=== PATIENT | male | born 1990 | race Caucasian/White ===

== ENCOUNTER 2016-09-18 | Emergency (ER) | payer MEDICAID | END 2016-09-18 13:41 | disposition left against medical advice (07) | DX: Z53.21 Procedure and treatment not carried out due to patient leaving prior to being seen by health care provider (principal) ==

== ENCOUNTER 2017-02-14 21:40 | Emergency (ER) | payer MEDICAID ==
[2017-02-14 21:46] VITALS: BP 165/93
[2017-02-14] MEDS ORDERED: traMADol 50 MG TABLET PO STA (21:48)
[2017-02-14] MEDS ORDERED: CLINDAMYCIN 150 MG CAPSULE PO STA (21:48)
--- NOTE | 2017-02-14 21:48 | ED Physician Documentation ---
PD HPI HEENT FB - Chief complaint Chief Complaint: Heent - History obtained from History obtained from: Patient - History of Present Illness Timing - onset: Other (He was eating tonight and a lesion on the roof of his mouth popped open. He's been having ongoing dental pain there.) Review of Systems Constitutional: denies: Fever, Chills Nose: denies: Rhinorrhea / runny nose, Congestion Throat: reports: Dental pain / toothache. denies: Sore throat PD PAST MEDICAL HISTORY - Past Medical History Past Medical History: No - Past Surgical History Past Surgical History: No - Present Medications Home Medications: Ambulatory Orders Medication Instructions Recorded Confirmed Albuterol Sulfate [Albuterol 2 puffs IH Q4HR PRN #1 [id number].[email or web address] 03/29/15 Sulfate Hfa] Clindamycin [Cleocin] 300 mg PO Q6H 10 Days 02/14/17 traMADol [Ultram] 50 mg PO Q4-6H PRN #15 tablet 02/14/17 - Allergies Allergies/Adverse Reactions: Allergies Allergy/AdvReac Type Severity Reaction Status Date / Time No Known Drug Allergies Allergy Verified 03/29/15 09:27 - Social History Does the pt smoke?: Yes Smoking Status: Heavy tobacco smoker Does the pt drink ETOH?: Yes Does the pt have substance abuse?: No - Immunizations Immunizations are current?: No - POLST Patient has POLST: No PD ED PE NORMAL - Vitals Vital signs reviewed: Yes - General General: Alert and oriented X 3, No acute distress - HEENT HEENT: PERRL, EOMI, Other (He has a dental abscess behind #8 which spontaneously opened.) - Neck Neck: Supple, no meningeal sign, No bony TTP - Neuro Neuro: Alert and oriented X 3, Normal speech - Psych Psych: Normal mood, Normal affect Results - Vitals Vitals: Vital Signs - 24 hr 02/14/17 21:44 Temperature 36.7 C Heart Rate 105 H Respiratory 18 Rate Blood Pressure 165/93 H O2 Saturation 96 Oxygen O2 Source Room air Departure - Departure Disposition: 01 Home, Self Care Clinical Impression: Dental abscess Condition: Good Record reviewed to determine appropriate education?: Yes Instructions: ED Abscess Dental Prescriptions: Clindamycin [Cleocin] 300 mg PO Q6H 10 Days traMADol [Ultram] 50 mg PO Q4-6H PRN #15 tablet PRN Reason: Pain Comments: It is very important that you follow up with a dentist. When it comes to dental problems like yours the emergency department can only offer you a short-term solution to your long-term problem. A couple of options for low-cost dental care include: [facility] in [place] call [phone] for an appointment Or [facility] in [place], call [phone] for an appointment Do not drink or drive while on narcotic pain medicine. Note that many narcotic pain relievers also contain tylenol/acetaminophen. Please ensure that your total dose of acetaminophen from all sources does not exceed 3 grams (3000mg) per day. You may constipated on this medication, take a stool softener such as "Colace" twice a day while you are on it. Also recommend a winu-hxj-cctrhrj laxative such as senna or MiraLAX any day that you do not have a bowel movement. If you received narcotic pain medication in the emergency department, do not drive or operate machinery for the next 24 hours. Your blood pressure was elevated today on check in to the emergency department. This does not mean that you have hypertension, it is a common phenomenon to check into the emergency department and have elevated blood pressure. I recommend that you see your primary care physician within the week to have it rechecked when you're feeling better. Discharge Date/Time: 02/14/17 22:01
[2017-02-14] MEDS ORDERED: traMADol 50 MG TABLET PO ONE (21:49)
[2017-02-14] MEDS ORDERED: CLINDAMYCIN 150 MG CAPSULE PO ONE (21:50)
== END 2017-02-14 22:01 | disposition home or self-care (01) ==
LOC: ED 21:40
DX: K04.7 Periapical abscess without sinus (principal); R03.0 Elevated blood-pressure reading, without diagnosis of hypertension; F17.200 Nicotine dependence, unspecified, uncomplicated
CPT/HCPCS: 99283; A9270

== ENCOUNTER 2017-06-02 23:53 | Emergency (ER) | payer MEDICAID ==
[2017-06-03 00:35] VITALS: BP 142/91
[2017-06-03] MEDS ORDERED: ACETAMINOPHEN 500 MG TABLET PO STA (00:42)
--- NOTE | 2017-06-03 00:46 | CT Preliminary Report ---
Exam: CT Head W/O IMPRESSION: Normal head CT. [facility] SITE ID: [id number]
[2017-06-03] MEDS ORDERED: ACETAMINOPHEN 500 MG TABLET PO ONE (00:49)
--- NOTE | 2017-06-03 00:54 | CT Preliminary Report ---
Exam: CT Facial Bones W/O IMPRESSION: 1. No evidence of maxillofacial fracture. 2. Carious and periodontal disease [facility] SITE ID: [id number]
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
[2017-06-03] MEDS: IBUPROFEN 600 MG TABLET PO STA (00:58)
[2017-06-03] MEDS ORDERED: IBUPROFEN 600 MG TABLET PO ONE (01:01)
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
== END 2017-06-03 01:17 | disposition home or self-care (01) ==
LOC: ED 23:53
DX: R51 Headache (principal); V40.5XXA Car driver injured in collision with pedestrian or animal in traffic accident, initial encounter; Y92.488 Other paved roadways as the place of occurrence of the external cause; K04.7 Periapical abscess without sinus; F17.200 Nicotine dependence, unspecified, uncomplicated
CPT/HCPCS: 70450; 70486; 99283; A9270

== ENCOUNTER 2018-08-10 01:34 | Outpatient (CLI) | payer MEDICAID | END 2018-08-10 01:35 | disposition EMS.NT | LOC: EMS 01:34 | PROVIDERS: ATTEND Surgery | DX: R51 Headache (principal); R11.10 Vomiting, unspecified ==

== ENCOUNTER 2020-08-31 09:40 | Outpatient (CLI) | payer MEDICAID ==
--- NOTE | 2020-08-31 10:57 | XRAY Report ---
PROCEDURE: Finger(s) RT INDICATIONS: R THUMB PX TECHNIQUE: AP hand, 2 views of the 1st finger(s) acquired. COMPARISON: None. FINDINGS: Bones: No fractures or dislocations. No suspicious bony lesions. Soft tissues: No suspicious soft tissue calcifications. IMPRESSION: No fracture or dislocation. Reviewed by: Es Haque MD on 08/31/2020 10:56 AM [facility] Approved by: Es Haque MD on 08/31/2020 10:56 AM [facility] Station ID: [id number]
== END 2020-08-31 23:59 | disposition home or self-care (01) ==
LOC: DI.N 09:40
PROVIDERS: ATTEND Nurse Practitioner
DX: M79.644 Pain in right finger(s) (principal)

== ENCOUNTER 2022-06-16 15:44 | Outpatient (CLI) | payer MEDICAID | END 2022-06-16 15:45 | disposition EMS.NT | LOC: EMS 15:44 | DX: Z03.89 Encounter for observation for other suspected diseases and conditions ruled out (principal) ==

== ENCOUNTER 2024-01-04 14:43 | Emergency (ER) | payer MEDICAID ==
[2024-01-04 15:11] VITALS: O2SAT 100
[2024-01-04] MEDS: SODIUM CHLORIDE 0.9% 1,000 ML IV STA (15:40)
[2024-01-04] MEDS: ONDANSETRON 4 MG/2 ML VIAL IVP STA (15:40)
[2024-01-04 15:44] LABS: BASOPHILS # (AUTO) 0.1 10^3/uL (0.0-0.1); BASOPHILS % (AUTO) 0.4 %; EOSINOPHILS # (AUTO) 0.1 10^3/uL (0.0-0.7); EOSINOPHILS % (AUTO) 0.7 %; HCT - HEMATOCRIT 41.6 % (42.0-52.0); HGB - HEMOGLOBIN 13.6 g/dL (14.0-18.0); LYMPHOCYTES # (AUTO) 2.5 10^3/uL (1.5-3.5); LYMPHOCYTES % (AUTO) 18.3 %; MEAN CORPUSCULAR HEMOGLOBIN 29.1 pg (27.0-31.0); MEAN CORPUSCULAR HGB CONC 32.7 g/dL (32.0-36.0); MEAN CORPUSCULAR VOLUME 88.9 fL (80.0-94.0); MEAN PLATELET VOLUME 8.5 fL (7.4-11.4); MONOCYTES # (AUTO) 0.7 10^3/uL (0.0-1.0); MONOCYTES % (AUTO) 5.4 %; NEUTROPHILS # (AUTO) 10.3 10^3/uL (1.5-6.6); NEUTROPHILS % (AUTO) 74.8 %; PLT - PLATELET COUNT 304 10^3/uL (130-450); RED BLOOD COUNT 4.68 10^6/uL (4.70-6.10); RED CELL DISTRIBUTION WIDTH 12.6 % (12.0-15.0); WHITE BLOOD COUNT 13.8 x10^3/uL (4.8-10.8)
--- NOTE | 2024-01-04 15:55 | ED Physician Documentation ---
History of Present Illness - Stated complaint Stated Complaint: CHEST PX, SHAKES - Chief complaint Chief Complaint: General - History obtained from History obtained from: Patient - Additonal information Additional information: Patient is a 33-year-old male presenting for evaluation of An episode of epigastric pain radiating into chest that started about an hour ago while at work along with feeling nausea, and weakness. Pain lasted few minutes. Patient states he was not doing anything exertional at work. He denies feeling short of air. Has not had much to eat or drink today other than cookies and an energy drink. Denies palpitations. Denies drug or alcohol use.Denies recent illness with fever cough or congestion. Review of Systems Constitutional: denies: Fever Cardiac: reports: Chest pain / pressure Respiratory: denies: Dyspnea GI: reports: Abdominal Pain (epigastric), Nausea. denies: Vomiting, Diarrhea PD PAST MEDICAL HISTORY - Past Medical History Past Medical History: No - Past Surgical History Past Surgical History: No - Present Medications Home Medications: Ambulatory Orders Medication Instructions Recorded Confirmed No Known Home Medications 01/04/24 01/04/24 - Allergies Allergies/Adverse Reactions: Allergies Allergy/AdvReac Type Severity Reaction Status Date / Time No Known Drug Allergies Allergy Verified 01/04/24 15:10 - Social History Does the pt smoke?: No Smoking Status: Former smoker Does the pt drink ETOH?: Yes Does the pt have substance abuse?: Yes Substance Use and Type: Marijuana - Immunizations Immunizations are current?: No - POLST Patient has POLST: No PD ED PE NORMAL - General General: Alert and oriented X 3, No acute distress, Well developed/nourished - HEENT HEENT: Atraumatic - Neck Neck: Supple, no meningeal sign - Cardiac Cardiac: RRR, Strong equal pulses - Respiratory Respiratory: No respiratory distress, Clear bilaterally - Abdomen Abdomen: Normal bowel sounds, Soft, Non tender, Non distended - Derm Derm: Warm and dry - Neuro Neuro: Normal speech Results - Vitals Vitals: Vital Signs - 24 hr 01/04/24 01/04/24 01/04/24 15:05 15:10 17:10 Temperature 36.3 C L 36.5 C 36.5 C Heart Rate 74 74 74 Respiratory 15 15 16 Rate Blood Pressure 116/64 116/64 114/62 O2 Saturation 100 100 100 Oxygen O2 Source Room air - EKG (time done) 1517 EKG releavant findings:: EKG personally interpreted by author of this note. Relevant findings are: Rate 74, normal sinus rhythm, no STEMI, QTc 431 - Labs Labs: Laboratory Tests 01/04/24 01/04/24 15:37 15:37 WBC 13.8 H RBC 4.68 L Hgb 13.6 L Hct 41.6 L MCV 88.9 MCH 29.1 MCHC 32.7 RDW 12.6 Plt Count 304 MPV 8.5 Neut # (Auto) 10.3 H Lymph # (Auto) 2.5 [place] # (Auto) 0.7 Eos # (Auto) 0.1 Baso # (Auto) 0.1 Absolute Nucleated RBC 0.00 Nucleated RBC % 0.0 Sodium 137 Potassium 3.6 Chloride 102 Carbon Dioxide 27 Anion Gap 8.0 BUN 13 Creatinine 0.9 Estimated GFR (MDRD) 96 Glucose 98 Calcium 9.7 Total Bilirubin 0.4 AST 18 ALT 16 Alkaline Phosphatase 68 Troponin I High Sens < 2.3 L Total Protein 6.8 Albumin 4.3 Globulin 2.5 Albumin/Globulin Ratio 1.7 Lipase 35 PD Medical Decision Making - ED course Complexity details: reviewed results, re-evaluated patient, d/w patient ED course: Pt with brief episode of epigastric pain into chest while at work, then feeling nausea and weakness. EKG reviewed. CBC, chemistries, troponin without significant findings. Chest XR clear. Pt feeling better here with IV fluids, zofran. Symptoms atypical for ACS and pt without risk factors for ACS. Pt aware of need for follow up and return precautions. Departure - Departure Disposition: 01 Home, Self Care Clinical Impression: Chest pain, Generalized weakness Condition: Stable Instructions: ED Chest Pain Atypical Unkn Cause Comments: Your testing today is overall reassuring. Your hemoglobin is 13.6 which is slightly below the normal range. Your chest x-ray does not show any abnormalities. Your testing does not show any signs of heart problems at this time and you are feeling much better. I would recommend making sure you are staying hydrated with water especially while at work and also eating proper food throughout the day. Please have follow-up with your primary care doctor. Return to the ER if you develop any worsening symptoms such as recurrence of chest pain. Forms: PCP List Discharge Date/Time: 01/04/24 17:34
--- NOTE | 2024-01-04 15:58 | XRAY Report ---
PROCEDURE: Chest 1V INDICATIONS: CP TECHNIQUE: One view of the chest was acquired. COMPARISON: 02/27/2015. FINDINGS: Surgical changes and devices: None. Lungs and pleura: No pleural effusions or pneumothorax. Lungs are clear. Mediastinum: Mediastinal contours appear normal. Heart size is normal. Bones and chest wall: No suspicious bony lesions. Overlying soft tissues appear unremarkable. IMPRESSION: No acute cardiopulmonary process. Reviewed by: Trevin Hammond MD on 01/04/2024 3:56 PM PDT Approved by: Trevin Hammond MD on 01/04/2024 3:56 PM PDT Station ID: [id number]
[2024-01-04 16:03] LABS: ALBUMIN 4.3 g/dL (3.2-5.5); ALBUMIN/GLOBULIN RATIO 1.7 (1.0-2.2); ALKALINE PHOSPHATASE 68 IU/L (42-121); ALT ALANINE AMINOTRANSFERASE 16 IU/L (10-60); AST ASPARTATE AMINOTRANSFERASE 18 IU/L (10-42); BILIRUBIN,TOTAL 0.4 mg/dL (0.2-1.0); BUN - BLOOD UREA NITROGEN 13 mg/dL (6-20); CALCIUM 9.7 mg/dL (8.5-10.3); CARBON DIOXIDE - CO2 27 mmol/L (21-32); CHLORIDE 102 mmol/L (101-111); CREATININE 0.9 mg/dL (0.6-1.3); GFR - MDRD 96 (>89); GLUCOSE 98 mg/dL (74-104); LIPASE 35 U/L (11-82); POTASSIUM 3.6 mmol/L (3.5-4.5); SODIUM 137 mmol/L (135-145); TOTAL PROTEIN 6.8 g/dL (6.4-8.9)
[2024-01-04 16:05] LABS: TROPONIN I HIGH SENSITIVITY < 2.3 ng/L (2.3-19.7)
[2024-01-04 17:35] VITALS: BP 114/62
== END 2024-01-04 17:34 | disposition home or self-care (01) ==
LOC: ED 14:43
DX: R07.9 Chest pain, unspecified (principal); R53.1 Weakness; Z87.891 Personal history of nicotine dependence
CPT/HCPCS: 36415; 80053; 83690; 84484; 85025; 93005; 96374; 99284